=== PATIENT | male | born 1965 | race Two or more races ===

== ENCOUNTER 2018-03-14 14:54 | Emergency (ER) | payer OTHER ==
[~2018-03-14] VITALS: Ht 185.4 cm; Wt 84.4 kg
[~2018-03-14 14:54] MED LIST: CIALIS5 MG; COZAAR100 MG PO; HUMALOG100 U/ML; LANTUS100 U/ML; PREVACID30 MG; SYNTHROID175 MCG; SYNTHROID75 MCG
[2018-03-15] MEDS ORDERED: CARAFATE1 GM PO (06:58)
== END 2018-03-15 08:01 | disposition home or self-care (01) ==
LOC: ER 14:54
DX: K31.84 Gastroparesis (principal)

== ENCOUNTER 2018-07-27 15:27 | Emergency (ER) | payer OTHER ==
[~2018-07-27] VITALS: Ht 185.4 cm; Wt 84.4 kg
[~2018-07-27 15:27] MED LIST changes: +CARAFATE1 GM PO
[2018-07-27] MEDS ORDERED: ULTRACET PO (23:26)
[2018-07-27] MEDS ORDERED: METOCLOPRAMIDE10 MG PO (23:26)
== END 2018-07-28 01:52 | disposition home or self-care (01) ==
LOC: ER 15:27
DX: E11.43 Type 2 diabetes mellitus with diabetic autonomic (poly)neuropathy (principal); K31.84 Gastroparesis; R10.84 Generalized abdominal pain

== ENCOUNTER 2018-12-25 11:28 | Emergency (ER) | payer OTHER ==
[~2018-12-25] VITALS: Ht 188 cm; Wt 82.6 kg
[~2018-12-25 11:28] MED LIST changes: +METOCLOPRAMIDE10 MG PO; +ULTRACET PO
== END 2018-12-25 20:38 | disposition home or self-care (01) ==
LOC: ER 11:28
DX: K29.00 Acute gastritis without bleeding (principal)

== ENCOUNTER 2018-12-28 05:18 | Emergency (ER) | payer OTHER ==
[~2018-12-28] VITALS: Ht 188 cm; Wt 81.6 kg
== END 2018-12-28 16:17 | disposition home or self-care (01) ==
LOC: ER 05:18
DX: K29.70 Gastritis, unspecified, without bleeding (principal); E86.0 Dehydration; E11.9 Type 2 diabetes mellitus without complications

== ENCOUNTER 2019-01-02 10:36 | Emergency (ER) | payer OTHER ==
[~2019-01-02] VITALS: Ht 188 cm; Wt 79.4 kg
== END 2019-01-03 11:45 | disposition home or self-care (01) ==
LOC: ER 10:36
DX: R00.2 Palpitations (principal); K29.70 Gastritis, unspecified, without bleeding; E86.0 Dehydration; E11.9 Type 2 diabetes mellitus without complications

== ENCOUNTER 2019-12-04 15:28 | Emergency (ER) | payer OTHER ==
[~2019-12-04] VITALS: Ht 188 cm; Wt 72.6 kg
== END 2019-12-05 10:01 | disposition home or self-care (01) ==
LOC: ER 15:28
DX: K29.60 Other gastritis without bleeding (principal); I16.0 Hypertensive urgency; I10 Essential (primary) hypertension

== ENCOUNTER 2019-12-17 15:26 | Emergency (ER) | payer OTHER ==
[~2019-12-17] VITALS: Ht 188 cm; Wt 77.1 kg
== END 2019-12-18 01:20 | disposition home or self-care (01) ==
LOC: ER 15:26
DX: K29.70 Gastritis, unspecified, without bleeding (principal); R11.11 Vomiting without nausea; E11.9 Type 2 diabetes mellitus without complications

== ENCOUNTER 2020-12-29 11:59 | Emergency (ER) | payer OTHER ==
[~2020-12-29] VITALS: Ht 185.4 cm; Wt 81.6 kg
== END 2020-12-29 21:54 | disposition home or self-care (01) ==
LOC: ER 11:59
DX: R11.10 Vomiting, unspecified (principal)

== ENCOUNTER 2021-01-04 11:14 | Emergency (ER) | payer OTHER ==
[~2021-01-04] VITALS: Ht 185.4 cm; Wt 80.3 kg
== END 2021-01-04 15:45 | disposition home or self-care (01) ==
LOC: ER 11:14
DX: K31.84 Gastroparesis (principal); E86.0 Dehydration

== ENCOUNTER → 2021-02-16 | Outpatient (CLI) | payer OTHER | END | disposition home or self-care (01) | LOC: TOM 12:57 | PROVIDERS: ATTEND Otolaryngology | DX: J32.1 Chronic frontal sinusitis (principal) ==

== ENCOUNTER 2021-06-23 00:53 | Emergency (ER) | payer OTHER ==
[~2021-06-23] VITALS: Ht 188 cm; Wt 79.4 kg
== END 2021-06-23 15:59 | disposition home or self-care (01) ==
LOC: ER 00:53
DX: R11.10 Vomiting, unspecified (principal); E87.5 Hyperkalemia; Z88.1 Allergy status to other antibiotic agents; I10 Essential (primary) hypertension; E11.65 Type 2 diabetes mellitus with hyperglycemia; Z79.4 Long term (current) use of insulin

== ENCOUNTER → 2022-04-20 | Emergency (ER) | payer OTHER ==
[~2022-04-20] VITALS: Ht 185.4 cm; Wt 78.5 kg
[~2022-04-20] MED LIST changes: +APIDRA SOL100 UNIT/1; +IRBESARTAN150 MG PO; +TRESIBA FL200 UNIT/1
== END | disposition home or self-care (01) ==
LOC: ER 12:27
DX: S91.311A Laceration without foreign body, right foot, initial encounter (principal); W45.8XXA Other foreign body or object entering through skin, initial encounter; Y93.89 Activity, other specified; Y92.89 Other specified places as the place of occurrence of the external cause; Y99.9 Unspecified external cause status; E11.9 Type 2 diabetes mellitus without complications; Z79.4 Long term (current) use of insulin; Z88.1 Allergy status to other antibiotic agents

== ENCOUNTER 2022-12-10 11:09 | Emergency (ER) | payer OTHER ==
[~2022-12-10] VITALS: Ht 185.4 cm; Wt 78.9 kg
== END 2022-12-10 15:11 | disposition home or self-care (01) ==
LOC: ER 11:09
DX: M79.672 Pain in left foot (principal)

== ENCOUNTER 2023-05-25 22:53 | Emergency (ER) | payer OTHER ==
[~2023-05-25] VITALS: Ht 188 cm; Wt 77.1 kg
[2023-05-26 01:14] LABS: HEMATOCRIT 41.6 % (39.0-48.0); HEMOGLOBIN 14.4 g/dL (13-16.00); MEAN CELL VOLUME 89.9 fL (80.0-100.00); MEAN CORPUSCULAR HGB CONC 34.5 g/dl (32.0-36.0); PLATELET COUNT 212 K/uL (150-450); RED BLOOD COUNT 4.63 M/uL (4.00-6.00); RED CELL DISTRIBUTION WIDTH 13.4 % (11.5-14.5)
[2023-05-26 01:38] LABS: ALBUMIN 3.8 gm/dL (3.4-5.0); BILIRUBIN TOTAL 0.83 mg/dL (0.3-1.2); BILIRUBIN,CONJUGATED 0.23 mg/dL (0.0-0.2); BILIRUBIN,UNCONJUGATED 0.6 mg/dL (0.0-0.6); CALCIUM 9.5 mg/dL (8.5-10.1); CREATININE SERUM 1.2 mg/dL (0.70-1.30); GFR 62.18; GLOBULINA 3.3 G/DL (2.4-3.5); POTASSIUM 3.88 mEq/L (3.5-5.1); TOTAL PROTEIN 7.1 gm/dL (6.4-8.2)
[2023-05-26] MEDS ORDERED: METOCLOPRAMIDE H5 MG PO (08:28)
[2023-05-26] MEDS ORDERED: PROTONIX40 MG PO (08:28)
[2023-05-26] MEDS ORDERED: PEPCID40 MG PO (08:28)
== END 2023-05-26 09:28 ==
LOC: ER 22:54
PROVIDERS: General Practice
DX: E11.43 Type 2 diabetes mellitus with diabetic autonomic (poly)neuropathy (principal); K31.84 Gastroparesis; Z79.4 Long term (current) use of insulin; Z88.8 Allergy status to other drugs, medicaments and biological substances; I10 Essential (primary) hypertension; E03.9 Hypothyroidism, unspecified

== ENCOUNTER 2023-05-30 21:19 | Emergency (ER) | payer OTHER ==
[~2023-05-30] VITALS: Ht 162.6 cm; Wt 77.1 kg
[~2023-05-30 21:19] MED LIST changes: +METOCLOPRAMIDE H5 MG PO; +PEPCID40 MG PO; +PROTONIX40 MG PO
[2023-05-31 01:31] LABS: HEMATOCRIT 45.1 % (39.0-48.0); HEMOGLOBIN 15.9 g/dL (13-16.00); MEAN CELL VOLUME 89.5 fL (80.0-100.00); MEAN CORPUSCULAR HEMOGLOBIN 31.5 pg (27.00-32.0); MEAN CORPUSCULAR HGB CONC 35.3 g/dl (32.0-36.0); PLATELET COUNT 240 K/uL (150-450); RED BLOOD COUNT 5.04 M/uL (4.00-6.00)
[2023-05-31 01:59] LABS: ALBUMIN 3.8 gm/dL (3.4-5.0); BILIRUBIN TOTAL 0.74 mg/dL (0.3-1.2); CALCIUM 9.4 mg/dL (8.5-10.1); CREATININE SERUM 1.22 mg/dL (0.70-1.30); GFR 61.01; GLOBULINA 3.4 G/DL (2.4-3.5); POTASSIUM 3.52 mEq/L (3.5-5.1); TOTAL PROTEIN 7.2 gm/dL (6.4-8.2)
== END 2023-05-31 05:12 | disposition home or self-care (01) ==
LOC: ER 21:20
DX: K31.84 Gastroparesis (principal); E11.9 Type 2 diabetes mellitus without complications; Z79.4 Long term (current) use of insulin; Z88.8 Allergy status to other drugs, medicaments and biological substances

== ENCOUNTER 2024-07-27 10:41 | Outpatient (CLI) | payer OTHER | END 2024-07-27 10:46 | disposition home or self-care (01) | LOC: RAD 10:41 | DX: M65.842 Other synovitis and tenosynovitis, left hand (principal); M65.342 Trigger finger, left ring finger ==

== ENCOUNTER 2024-09-17 11:56 | Inpatient (IN) | payer OTHER ==
[~2024-09-17] VITALS: Ht 152.4 cm; Wt 81.6 kg
--- NOTE | 2024-09-17 13:24 | NUR ---
SE RECIBE PACIENTE ALERTA X3. EL MISMO REFIERE TENER DOLOR ABDOMINAL Y VOMITOS DESDE HACE 4 RAMOS. SE PROCEDE A CASS S/V AL PACIENTE Y SE UBICA EN AMBROCIO 12 CON BARANDAS ELEVADAS Y NIVEL MAS BAJO DE AMBROCIO
[2024-09-17] MEDS ORDERED: FAMOTIDINE/PF 20 MG in 0.9 % SODIUM CHLORIDE 8 ML IV PUSH STA ×2 (14:00→21:04)
[2024-09-17] MEDS ORDERED: ONDANSETRON HCL 2 MG/ML VIAL IV STA (14:00)
[2024-09-17] MEDS ORDERED: 0.9 % SODIUM CHLORIDE 1,000 ML IV STA (14:01)
[2024-09-17] MEDS ORDERED: MORPHINE SULFATE 4 MG/ML VIAL IV ONE (14:15)
[2024-09-17] MEDS ORDERED: ONDANSETRON HCL 2 MG/ML VIAL ONE (14:34)
[2024-09-17] MEDS ORDERED: FAMOTIDINE/PF 20 MG/2 ML VIAL ONE (14:34)
[2024-09-17 14:46] LABS: HEMOGLOBIN 17.2 g/dL (13-16.00); MEAN CELL VOLUME 88.5 fL (80.0-100.00); MEAN CORPUSCULAR HEMOGLOBIN 30.4 pg (27.00-32.0); MEAN CORPUSCULAR HGB CONC 34.3 g/dl (32.0-36.0); PLATELET COUNT 264 K/uL (150-450); RED BLOOD COUNT 5.65 M/uL (4.00-6.00); RED CELL DISTRIBUTION WIDTH 13.5 % (11.5-14.5)
[2024-09-17 15:08] LABS: ALBUMIN 4.7 gm/dL (3.4-5.0); BILIRUBIN TOTAL 0.77 mg/dL (0.3-1.2); CALCIUM 10.1 mg/dL (8.5-10.1); CREATININE SERUM 2.7 mg/dL (0.70-1.30); GFR 24.31; GLOBULINA 4.1 G/DL (2.4-3.5); POTASSIUM 4.11 mEq/L (3.5-5.1); TOTAL PROTEIN 8.8 gm/dL (6.4-8.2)
--- NOTE | 2024-09-17 15:35 | NUR ---
SE EJECUTAN ORDENES MEDICAS EN VARGAS TOTALIDAD
[2024-09-17] MEDS ORDERED: PANTOPRAZOLE SODIUM 40 MG in 0.9 % SODIUM CHLORIDE 8 ML IV PUSH STA (17:26)
[2024-09-17] MEDS ORDERED: METOCLOPRAMIDE HCL 10 MG in 0.9 % SODIUM CHLORIDE 50 ML IV ONE (17:30)
[2024-09-17] MEDS ORDERED: METOCLOPRAMIDE HCL 5 MG/ML VIAL ONE (17:41)
[2024-09-17 18:49] LABS: ABG PH 7.372 (7.35-7.45); ABG pCO2 42.3 mmHg (35-45); BASE EXCESS -1.2 mmol/l; SaO2 95.1 %; Tco2 25.3 mmol/l; o2 21 %; puncture site RADIAL RIGHT
[2024-09-17 18:50] LABS: ABG PO2 78.8 mmHg (80-100); allen test SATISFACTORY; mode ROOM AIR
[2024-09-17] MEDS ORDERED: CEFTRIAXONE SODIUM 2,000 MG in 0.9 % SODIUM CHLORIDE 100 ML IV SCH (21:12)
[2024-09-17] MEDS ORDERED: DEXTROSE 50 % IN WATER 0.5 G/ML DISP.SYRIN IV PRN (21:15)
[2024-09-17] MEDS ORDERED: INSULIN LISPRO 1,000 UNIT/10 ML UNITS SUBCUTANEO PRN (21:15)
[2024-09-17] MEDS ORDERED: ONDANSETRON HCL 4 MG in 0.9 % SODIUM CHLORIDE 50 ML IV PRN (21:15)
[2024-09-17] MEDS ORDERED: MORPHINE SULFATE 2 MG/ML CARTRIDGE IV PRN (21:15)
[2024-09-17] MEDS ORDERED: 0.9 % SODIUM CHLORIDE 1,000 ML IV SCH (21:15)
[2024-09-17] MEDS ORDERED: 0.9 % SODIUM CHLORIDE 1,000 ML IV ONE (21:15)
[2024-09-17] MEDS ORDERED: ACETAMINOPHEN 500 MG GEL..CAP PO PRN (21:15)
[2024-09-18] MEDS ORDERED: ENALAPRILAT DIHYDRATE 1.25 MG/ML VIAL IV PRN (00:15)
[2024-09-18] MEDS ORDERED: FAMOTIDINE/PF 20 MG/2 ML VIAL ONE (00:23)
[2024-09-18] MEDS ORDERED: CEFTRIAXONE SODIUM 2,000 MG VIAL ONE (00:23)
[2024-09-18] MEDS ORDERED: ENALAPRILAT DIHYDRATE 1.25 MG/ML VIAL IV ONE (00:23)
[2024-09-18] MEDS ORDERED: METRONIDAZOLE/SODIUM CHLORIDE 100 ML IV SCH (01:00)
[2024-09-18 01:21] VITALS: BP 180/80
[2024-09-18 01:58] LABS: INR 1.05; PARTIAL THROMBOPLASTIN TIME 25.1 SECONDS (22.0-34.0); PROTHROMBIN TIME 11.4 SECONDS (9.0-11.5)
[2024-09-18 02:07] LABS: PHOSPHOROUS 3.8 mg/dL (2.5-4.9)
[2024-09-18 02:08] LABS: C-REACTIVE PROTEIN < 0.29 MG/DL (0.00-0.29)
[2024-09-18 03:40] VITALS: BP 136/96; O2SAT 95
[2024-09-18] MEDS ORDERED: LEVOTHYROXINE SODIUM 112 MCG TABLET PO SCH (06:00)
[2024-09-18 07:05] LABS: PH,URINE 5.5 (5.0-8.0); URINE APPEARANCE Clear; URINE BILIRRUBIN Negative (NEGATIVE); URINE BLOOD Negative; URINE COLOR Yellow; URINE KETONE 15 (NEGATIVE); URINE LEUKOCYTE Negative; URINE NITRATE Negative; URINE PROTEIN Negative (NEGATIVE); URINE UROBILINOGEN 0.2 E.U./dl
[2024-09-18 07:15] LABS: URINE BACTERIA 1.2 uL (0.0-1933); URINE CAST 0.29 uL (0.0-1.40); URINE EPITHELIAL CELLS 0.6 uL (0.0-38.8); URINE GLUCOSE 500 MG/DL (NEGATIVE); URINE RBC 1.7 uL (0.0-20.8); URINE WBC 0.7 uL (0.0-23.2)
[2024-09-18] MEDS ORDERED: PANTOPRAZOLE SODIUM 80 MG IV SCH (08:15)
[2024-09-18] MEDS ORDERED: hydrALAZINE HCL 20 MG VIAL IV PRN (08:15)
[2024-09-18] MEDS ORDERED: PANTOPRAZOLE SODIUM 80 MG in 0.9 % SODIUM CHLORIDE 100 ML IV SCH (08:30)
[2024-09-18] MEDS ORDERED: PANTOPRAZOLE SODIUM 40 MG/VIAL VIAL IV SCH (09:00)
[2024-09-18] MEDS ORDERED: IRBESARTAN 150 MG TABLET PO SCH (09:00)
[2024-09-18] MEDS ORDERED: METOCLOPRAMIDE HCL 10 MG in DEXTROSE 5 % IN WATER 50 ML IV SCH (09:00)
[2024-09-18 09:38] VITALS: BP 155/81; O2SAT 95
[2024-09-18] MEDS ORDERED: SODIUM CL 0.9% 100 ML IV.SOLN IV ONE (12:02)
[2024-09-18] MEDS ORDERED: DEXTROSE 50 % IN WATER 0.5 G/ML VIAL IV PRN (14:00)
[2024-09-18] MEDS ORDERED: FAMOTIDINE/PF 20 MG in 0.9 % SODIUM CHLORIDE 8 ML IV PUSH SCH (17:00)
[2024-09-18 17:35] VITALS: BP 136/80; O2SAT 97
[2024-09-18] MEDS ORDERED: DEXTROSE 5 % AND 0.9 % NACL 1,000 ML IV SCH (22:45)
[2024-09-18] MEDS ORDERED: INSULIN LISPRO 1,000 UNIT/10 ML UNITS SUBCUTANEO PRN (23:00)
[2024-09-19 01:23] VITALS: BP 164/79; O2SAT 95
[2024-09-19] MEDS ORDERED: AMLODIPINE BESYLATE 5 MG TABLET PO SCH (09:00)
[2024-09-19 09:41] VITALS: BP 172/83
[2024-09-19 13:23] LABS: HEMATOCRIT 41.3 % (39.0-48.0); HEMOGLOBIN 13.8 g/dL (13-16.00); MEAN CELL VOLUME 89.7 fL (80.0-100.00); MEAN CORPUSCULAR HGB CONC 33.5 g/dl (32.0-36.0); PLATELET COUNT 182 K/uL (150-450); RED CELL DISTRIBUTION WIDTH 13.2 % (11.5-14.5)
[2024-09-19 14:28] LABS: ALBUMIN 3.6 gm/dL (3.4-5.0); ALKALINE PHOSPHATASE 98 U/L (50-136); ALT/SGPT 28 U/L (12-78); ANION GAP 9 (10.0-20.0); AST/SGOT 22 U/L (15-37); BILIRUBIN TOTAL 0.84 mg/dL (0.3-1.2); BLOOD UREA NITROGEN 21 mg/dL (7-18); BUN CREA RATIO 22 (7.0-25.0); CALCIUM 8.3 mg/dL (8.5-10.1); CARBON DIOXIDE 31 mEq/L (21-32); CHLORIDE 102 mmol/L (98-107); CREATININE SERUM 0.94 mg/dL (0.70-1.30); GFR 82.14; GLUCOSE FASTING 174 mg/dL (65-100); OSMOLALITY SERUM 283 MOSM/KG (275-295); PHOSPHOROUS 2.2 mg/dL (2.5-4.9); POTASSIUM 3.86 mEq/L (3.5-5.1); SODIUM 138 mmol/L (136-145); TOTAL PROTEIN 6.6 gm/dL (6.4-8.2)
[2024-09-19 14:32] LABS: C-REACTIVE PROTEIN < 0.29 MG/DL (0.00-0.29)
[2024-09-19 16:00] VITALS: BP 144/82; O2SAT 96
[2024-09-20 01:43] VITALS: BP 149/85; O2SAT 97
[2024-09-20 08:30] VITALS: BP 179/84; O2SAT 98
[2024-09-20] MEDS ORDERED: PANTOPRAZOLE SODIUM 40 MG/VIAL VIAL IV SCH (09:00)
[2024-09-20] MEDS ORDERED: METOCLOPRAMIDE HCL 5 MG/ML VIAL ONE (15:41)
[2024-09-20 18:03] VITALS: BP 103/58
[2024-09-20] MEDS ORDERED: CLONAZEPAM 1 MG TABLET PO SCH (21:00)
[2024-09-21 01:13] VITALS: BP 160/78; O2SAT 96
[2024-09-21 08:41] VITALS: BP 171/98; O2SAT 95
[2024-09-21] MEDS ORDERED: 0.9 % SODIUM CHLORIDE 1,000 ML IV SCH (09:45)
[2024-09-21] MEDS ORDERED: SODIUM CHLORIDE 0.45 % 1,000 ML IV SCH (10:00)
[2024-09-21] MEDS ORDERED: AMLODIPINE BESYL5 MG PO (10:21)
[2024-09-21] MEDS ORDERED: AVAPRO150 MG PO (10:22)
[2024-09-21] MEDS ORDERED: LEVOTHYROXINE112 MCG PO (10:24)
[2024-09-21] MEDS ORDERED: METOCLOPRAMIDE H5 MG PO (10:27)
[2024-09-21] MEDS ORDERED: PROTONIX40 M1 PO (10:28)
== END 2024-09-21 11:37 | disposition home or self-care (01) | DRG 683 ==
LOC: ER 11:56 → MEDI 09-18 01:44
PROVIDERS: Emergency Medicine; General Practice; ADMIT Internal Medicine; ATTEND Internal Medicine
PROC: BW21ZZZ Computerized Tomography (CT Scan) of Abdomen and Pelvis (ICD-10-PCS; principal; 2024-09-17)
DX: N17.9 Acute kidney failure, unspecified (principal); E87.1 Hypo-osmolality and hyponatremia; I10 Essential (primary) hypertension; E78.5 Hyperlipidemia, unspecified; N13.30 Unspecified hydronephrosis; K31.84 Gastroparesis; E03.9 Hypothyroidism, unspecified; E10.9 Type 1 diabetes mellitus without complications; Z79.4 Long term (current) use of insulin; E86.0 Dehydration; Q63.1 Lobulated, fused and horseshoe kidney

== ENCOUNTER 2024-12-09 21:01 | Emergency (ER) | payer OTHER ==
[~2024-12-09] VITALS: Ht 185.4 cm; Wt 79.4 kg
[~2024-12-09 21:01] MED LIST changes: +AMLODIPINE BESYL5 MG PO; +AVAPRO150 MG PO; +LEVOTHYROXINE112 MCG PO; +PROTONIX40 M1 PO
[2024-12-09] MEDS ORDERED: METOCLOPRAMIDE HCL 5 MG/ML VIAL IM STA (23:26)
[2024-12-09] MEDS ORDERED: 0.9 % SODIUM CHLORIDE 1,000 ML IV STA (23:26)
[2024-12-09] MEDS ORDERED: MORPHINE SULFATE 4 MG/ML VIAL IV STA (23:27)
[2024-12-09] MEDS ORDERED: KETOROLAC TROMETHAMINE 30 MG VIAL IV STA (23:27)
[2024-12-10 01:35] LABS: BASO % 0.2 % (0.1-1.2); EOS # 0.00 (0.04-0.54); EOS % 0.0 % (0.7-7.0); LYMPH # 0.64 (1.18-3.74); LYMPH % 5.4 % (19.3-53.1); MEAN PLATELET VOLUME 10.30 fl (9.4-12.4); MONO # 0.49 (0.24-0.82); MONO % 4.1 % (4.7-12.5); NEUT # 10.71 (1.56-6.13); NEUT % 89.9 % (34.0-71.1); RED CELL DISTRIBUTION WIDTH 12.3 % (11.6-14.4)
[2024-12-10 01:56] LABS: ALT/SGPT 40.0 U/L (12-78); AST/SGOT 23.0 U/L (15-37); BILIRUBIN TOTAL 0.93 mg/dL (0.3-1.2); BUN CREA RATIO 24.0 (7.0-25.0); CREATININE SERUM 1.2 mg/dL (0.70-1.30); GFR 61.97; GLOBULINA 3.8 G/DL (2.4-3.5); OSMOLALITY SERUM 292.0 MOSM/KG (275-295)
[2024-12-10 01:59] LABS: GLUCOSE FASTING 329.0 mg/dL (65-100)
[2024-12-10] MEDS ORDERED: PROMETHAZINE HCL 50 MG/ML AMPUL IM STA (03:41)
[2024-12-10] MEDS ORDERED: PHENERGAN25 MG PO (06:31)
== END 2024-12-10 06:35 ==
LOC: ER 22:33
DX: K31.84 Gastroparesis (principal); R11.10 Vomiting, unspecified; I10 Essential (primary) hypertension; E11.9 Type 2 diabetes mellitus without complications; Z79.4 Long term (current) use of insulin; Z88.1 Allergy status to other antibiotic agents

== ENCOUNTER 2024-12-11 10:15 | Emergency (ER) | payer OTHER ==
[~2024-12-11] VITALS: Ht 188 cm; Wt 79.4 kg
[~2024-12-11 10:15] MED LIST changes: +PHENERGAN25 MG PO
[2024-12-11] MEDS ORDERED: MORPHINE SULFATE 4 MG/ML VIAL IV ONE (11:15)
[2024-12-11] MEDS ORDERED: METOCLOPRAMIDE HCL 10 MG in DEXTROSE 5 % IN WATER 50 ML IV ONE (11:15)
[2024-12-11] MEDS ORDERED: FAMOTIDINE/PF 20 MG/2 ML VIAL IV ONE (11:15)
[2024-12-11] MEDS ORDERED: 0.9 % SODIUM CHLORIDE 1,000 ML IV STA (11:19)
[2024-12-11] MEDS ORDERED: ONDANSETRON HCL 2 MG/ML VIAL IV STA (11:20)
[2024-12-11 12:22] LABS: BASO % 0.2 % (0.1-1.2); EOS # 0.00 (0.04-0.54); EOS % 0.0 % (0.7-7.0); LYMPH # 0.73 (1.18-3.74); LYMPH % 7.9 % (19.3-53.1); MEAN PLATELET VOLUME 9.70 fl (9.4-12.4); MONO # 0.35 (0.24-0.82); MONO % 3.8 % (4.7-12.5); NEUT # 8.09 (1.56-6.13); NEUT % 87.8 % (34.0-71.1); RED CELL DISTRIBUTION WIDTH 12.4 % (11.6-14.4)
[2024-12-11 13:06] LABS: ABG PH 7.478 (7.35-7.45); ABG PO2 74.2 mmHg (80-100); BICARBONATE 27.5 mmol/l (23-25)
[2024-12-11 13:12] LABS: ALT/SGPT 46.0 U/L (12-78); AST/SGOT 42.0 U/L (15-37); BILIRUBIN TOTAL 1.02 mg/dL (0.3-1.2); BUN CREA RATIO 26.0 (7.0-25.0); CREATININE SERUM 1.04 mg/dL (0.70-1.30); GFR 73.1; GLOBULINA 3.3 G/DL (2.4-3.5); GLUCOSE FASTING 177.0 mg/dL (65-100); OSMOLALITY SERUM 280.0 MOSM/KG (275-295)
[2024-12-11 14:30] LABS: o2 21 %
[2024-12-11] MEDS ORDERED: LORazepam 2 MG/ML VIAL IM ONE (15:45)
[2024-12-11 20:27] LABS: URINE APPEARANCE Clear; URINE BILIRRUBIN Negative (NEGATIVE); URINE BLOOD Negative; URINE COLOR Yellow; URINE GLUCOSE Negative (NEGATIVE); URINE KETONE 15 (NEGATIVE); URINE LEUKOCYTE Negative; URINE NITRATE Negative; URINE PROTEIN Negative (NEGATIVE); URINE UROBILINOGEN 0.2 E.U./dl
[2024-12-11 20:31] LABS: URINE RBC 4.3 uL (0.0-20.8)
[2024-12-11 20:51] LABS: URINE BACTERIA 1.1 uL (0.0-1933); URINE CAST 0.14 uL (0.0-1.40); URINE EPITHELIAL CELLS 0.1 uL (0.0-38.8); URINE WBC 0.3 uL (0.0-23.2)
== END 2024-12-11 23:45 | disposition home or self-care (01) ==
LOC: ER 10:15
PROVIDERS: Emergency Medicine
DX: K29.70 Gastritis, unspecified, without bleeding (principal); K31.84 Gastroparesis; Z79.4 Long term (current) use of insulin; Z88.1 Allergy status to other antibiotic agents